=== PATIENT | male | born 1950 | race Caucasian/White ===

== ENCOUNTER 2016-04-07 13:07 | Emergency (ER) | payer MEDICARE ==
[~2016-04-07 13:07] MED LIST: ATIVAN-DPS1 MG PO; DESYREL DPS100 MG PO; EFFEXOR XR DPS150 MG PO; FOLVITE-DPS1 MG PO; K-PHOS NEUTRAL250 MG PO; KLOR-CON M2020 ME1 PO; LACTULOSE20 GM/30 M PO; LASIX DPS20 MG PO; MAALOX DPS30 ML PO; NITROSTAT0.4 MG SL; PEPCID DPS20 MG PO; SPIRONOLACT50 MG PO; SURFAK DPS240 MG PO; THERAPEUTIC MUL1 TA1 PO; TYLENOL DPS325 MG PO; VISTARIL-DPS25 MG PO; VITAMIN B1100 MG PO; ZOFRAN4 MG PO
--- NOTE | 2016-04-09 19:25 | ER ---
ADMIT: 04/07/2016 RM/LOC: ER [facility] MR#: [id number] 26[address] [facility] [address] [place] [id number] [address] [place], [place] [address] Emergency Room Report SEX: M AGE: 65 : 1950 DATE: 04/07/2016 TIME: 1307 hours. Please refer to my T-sheet for complete H and P. Briefly, the patient is a 65- year-old who comes in. He has a known history of hepatic encephalopathy, alcohol abuse, cirrhosis, GI bleed, and pancytopenia. Apparently he ran out of his medications for the last day or two. He comes in, he says he has to have them, "if he does not have lactulose, he could ." He has been told this and he is very concerned. He says he is drinking but he has not been drinking much today. PHYSICAL EXAMINATION: VITAL SIGNS: Blood pressure 153/74, pulse 94, respirations 20, temp 97.4, and sat 100%. GENERAL: He is in no acute distress. HEENT: Grossly normal. LUNGS: Clear. HEART: Regular. ABDOMEN: Soft, nontender. SKIN: No rash. NEURO: He is very anxious but nonfocal. EMERGENCY DEPARTMENT COURSE: His CBC was normal except white count 4.9, hemoglobin 8.5, and platelets 72 all of which are stable for him. Chemistries normal except potassium 2.9, CO2 of 21, glucose 121, and total bili 1.6. His INR is 1.2, but his PTT was 31.2. His ammonia level was 22. We gave him 30 mL p.o. of lactulose, 40 mEq potassium chloride. I talked to Dr. Rai. We refilled his medications, he just has to go pick them up. I also gave him a new prescription for K-Dur 10 mEq a day. ASSESSMENT: 1. Out of medications. 2. Pancytopenia. 3. Hypokalemia. 4. Liver disease with alcohol abuse. PLAN: We will put him on K-Dur 10 mEq a day for 10 days. Return if worse. Continue his medications which have been refilled by Dr. Rai and follow up with Dr. Rai. Ole Gaytan MD/ lyndsay JOB #: [id number] CC: Ole Gaytan MD, Attending Physician
== END 2016-04-07 15:25 | disposition home or self-care (01) ==
LOC: ER 13:07
DX: E87.6 Hypokalemia (principal); D61.818 Other pancytopenia; K70.9 Alcoholic liver disease, unspecified; Z76.0 Encounter for issue of repeat prescription

== ENCOUNTER 2016-06-07 14:08 | Emergency (ER) | payer MEDICARE ==
--- NOTE | 2016-06-15 11:03 | ER ---
ADMIT: 06/07/2016 RM/LOC: ER [facility] MR#: [id number] [address] [id number] [place] [address] Emergency Room Report SEX: M AGE: 65 : 1950 DATE: 06/07/2016 ADDENDUM: CHIEF COMPLAINT: Fell, hit head. HISTORY OF PRESENT ILLNESS: This 65-year-old male, who is a known alcoholic, fell, hit his head on the concrete. His neighbors had called 911, so he was brought into the emergency room. CT of his head was done, is negative for any intracranial injury. Suture repair was done of his forehead and nose area. Please see T-sheet for that information. CLINICAL IMPRESSION: Laceration to the forehead and nose. FOX Price / Gio Perez MD / lyndsay JOB #: [id number] CC: Gio Perez MD, Attending Physician UNKNOWN, Family Physician
== END 2016-06-07 16:15 | disposition home or self-care (01) ==
LOC: ER 14:08
DX: S01.81XA Laceration without foreign body of other part of head, initial encounter (principal); S01.21XA Laceration without foreign body of nose, initial encounter; F32.9 Major depressive disorder, single episode, unspecified; Z88.0 Allergy status to penicillin; Z79.899 Other long term (current) drug therapy; Y92.009 Unspecified place in unspecified non-institutional (private) residence as the place of occurrence of the external cause; W18.30XA Fall on same level, unspecified, initial encounter